=== PATIENT | male | born 1970 | race African-American/Black ===

== ENCOUNTER 2016-12-02 10:22 | Day surgery (SDC) | payer BC ==
[~2016-12-02] VITALS: Ht 177.8 cm; Wt 90.7 kg
[2016-12-02] MEDS ORDERED: OXYMETAZOLINE HCL 0.05% NASAL SPRAY NS ONE (12:15)
[2016-12-02] MEDS ORDERED: SEVOFLURANE 15 MIN GAS INH ONE (12:15)
[2016-12-02] MEDS ORDERED: fentaNYL CITRATE 250 MCG/5 ML AMP IV ONE (12:15)
[2016-12-02] MEDS ORDERED: NS 50 ML BAG IV ONE (12:15)
[2016-12-02] MEDS ORDERED: WATER FOR IRRIGATION,STERILE 1,000 ML IRRIG.SOLN IR ONE (12:15)
[2016-12-02] MEDS ORDERED: GLYCOPYRROLATE 0.2 MG/ML VIAL IJ ONE (12:15)
[2016-12-02] MEDS ORDERED: DEXAMETHASONE SOD PHOSPHATE 4 MG/ML VIAL IVP ONE (12:15)
[2016-12-02] MEDS ORDERED: EPINEPHrine 1 MG/ML AMP IVP ONE (12:15)
[2016-12-02] MEDS ORDERED: PROPOFOL 200MG/ 20ML VIAL (DIPRIVAN) IV ONE (12:15)
[2016-12-02] MEDS ORDERED: LIDOCAINE/EPI 1% 1:100000 20 ML VIAL INJ ONE (12:15)
[2016-12-02] MEDS ORDERED: NEOSTIGMINE METHYLSULFATE 1 MG/ML, 10 ML VIAL IVP ONE (12:15)
[2016-12-02] MEDS ORDERED: ONDANSETRON HCL 4 MG/2 ML VIAL IVP ONE (12:15)
[2016-12-02] MEDS ORDERED: ROCURONIUM BROMIDE 10 MG/ML (ZEMURON) IV ONE (12:15)
[2016-12-02] MEDS ORDERED: NS IRRIG SOLN 1000 ML IR ONE (12:15)
[2016-12-02] MEDS ORDERED: BACITRACIN ZINC 15 GM TOPICAL OINTMENT TP ONE (12:15)
[2016-12-02] MEDS ORDERED: MUPIROCIN 2% TOPICAL OINTMENT 22 GM TP ONE (12:15)
[2016-12-02] MEDS ORDERED: LR 1,000 ML IV.SOLN IV ONE (12:15)
[2016-12-02] MEDS ORDERED: MIDAZOLAM HCL 5 MG/5 ML VIAL IVP ONE (12:15)
[2016-12-02] MEDS ORDERED: LR 1,000 ML IV SCH (14:19)
[2016-12-02] MEDS ORDERED: MORPHINE 2 MG/ML INJ. SYRINGE IVP PRN ×3 (14:30)
[2016-12-02] MEDS ORDERED: METOCLOPRAMIDE HCL 10 MG/2 ML VIAL IVP PRN (14:30)
[2016-12-02] MEDS ORDERED: ALBUTEROL SULFATE 0.083% 2.5 MG/3 ML VIAL.NEB INH ONE ×2 (14:45→14:59)
[2016-12-02] MEDS ORDERED: RACEPINEPHRINE HCL 0.5 ML VIAL.NEB INH ONE ×2 (14:56→15:45)
[2016-12-02 16:24] VITALS: BP_SYST 132
== END 2016-12-02 17:05 | disposition home or self-care (01) ==
LOC: SDS 10:22 → SMU 10:23 → SDS 17:05
PROVIDERS: ATTEND Otolaryngology
DX: J34.2 Deviated nasal septum (principal); J32.9 Chronic sinusitis, unspecified; J34.89 Other specified disorders of nose and nasal sinuses; J45.909 Unspecified asthma, uncomplicated; I10 Essential (primary) hypertension; E66.9 Obesity, unspecified
CPT/HCPCS: 30140; 30520; 30999; 31255; 31267; 88305; 88311; 94640; J0171; J1100; J2250; J2405; J2704; J2710; J3010; J3490; J7120